=== PATIENT | female | born 1940 | race Caucasian/White ===

== ENCOUNTER → 2020-03-11 11:16 | Outpatient (CLI) | payer MEDICARE, BC, SELFPAY ==
--- NOTE | 2020-03-11 | DI.MG.S_ITS ---
BILATERAL DIGITAL DIAGNOSTIC MAMMOGRAM 3D/2D: 03/11/2020 CLINICAL: Right axillary tail mass. Comparison is made to exams dated: 12/28/2016 mammogram, 12/12/2014 mammogram, and 05/06/2012 mammogram - [facility]. The tissue of both breasts is heterogeneously dense. This may lower the sensitivity of mammography. There is an oval lymph node or nodes with a circumscribed margin in the right axilla seen on the axillary view only. This correlates as palpated. No other significant masses, calcifications, or other findings are seen in either breast. Diffuse scattered punctate calcifications bilaterally appear unchanged. IMPRESSION: INCOMPLETE: NEEDS ADDITIONAL IMAGING EVALUATION Enlarged lymph node or nodes in the right axilla are indeterminate. A targeted ultrasound is recommended and will immediately follow. This exam was interpreted at Station ID: [id number]. NOTE: For mammograms, a report in lay terms will be sent to the patient. Approximately 15% of breast malignancies will not be visualized mammographically. In the management of a palpable breast mass, a negative mammogram must not discourage biopsy of a clinically suspicious lesion. Electronically Signed By: Willis Rangel M.D. slc/:03/11/2020 13:02:30 ACR BI-RADS Category 0: Incomplete [id number]
--- NOTE | 2020-03-11 | DI.US.S_ITS ---
ULTRASOUND OF RIGHT BREAST AND AXILLA: 03/11/2020 CLINICAL: Palpable right breast lump. Comparison is made to exams dated: 03/11/2020 mammogram - [facility], 12/28/2016 mammogram, 12/12/2014 mammogram, and 05/06/2012 mammogram - [facility]. Color flow and real-time ultrasound of the right breast axilla were performed. Obrien scale images of the real-time examination were reviewed. There is a 4 cm x 2.2 cm x 6.3 cm oval enlarged lymph node with a circumscribed margin in the right axillary tail. This oval enlarged lymph node is hypoechoic and hyperechoic. This correlates as palpated. This node appears bilobed. Color flow imaging demonstrates that there is vascularity present. There also is a 1.2 cm x 0.8 cm x 1.8 cm enlarged lymph node in the right axillary tail. This enlarged lymph node is hypoechoic and hyperechoic. Color flow imaging demonstrates that there is vascularity present. A few additional similar appearing enlarged lymph nodes in the right axillary. IMPRESSION: SUSPICIOUS OF MALIGNANCY Palpable abnormality corresponds to a 6.3 cm enlarged lymph node in the right axilla and is at a high suspicion for malignancy. Several additional adjacent enlarged nodes. Ultrasound guided biopsy is recommended. Exam findings and recommendation were discussed with the patient in person by Dr. Arango. This exam was interpreted at Station ID: [id number]. Electronically Signed By: Willis Rangel M.D. slc/:03/11/2020 13:43:43 letter sent: Biopsy Required Ultrasound BI-RADS: 4c High suspicion of malignancy
== END ==
PROVIDERS: PCP Nurse Practitioner; Referring Provider Nurse Practitioner; Visit Provider Nurse Practitioner
DX: R92.8 Other abnormal and inconclusive findings on diagnostic imaging of breast (principal); N63.31 Unspecified lump in axillary tail of the right breast; R59.0 Localized enlarged lymph nodes
CPT/HCPCS: 76642; 77066; G0279

== ENCOUNTER → 2020-03-26 08:45 | Outpatient (CLI) | payer MEDICARE, OTHER, SELFPAY ==
--- NOTE | 2020-03-26 | PATH_ITS ---
[facility] Accession Number: [id number] . 01 Material submitted: . PART A: lymph node - RIGHT AXILLARY LYMPH NODE (FORMALIN) PART B: lymph node - RIGHT AXILLARY LYMPH NODE (NON-BACTERIOSTATIC SALINE) . 01 Clinical history: . BREAST AXILLARY MASS . 01 Diagnosis: A. 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 See comment. . B. 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 V 04/01/2020 1636 Local . 01 Comment: Both biopsies show what appears to be lymph node partially replaced by solid nests of a poorly differentiated carcinoma with moderately abundant eosinophilic cytoplasm, severely pleomorphic/atypical nuclei, and multiple mitotic figures. A panel of immunostains is obtained to determine the primary site, on block A, with controls stained appropriately. The tumor shows the following results: . Cytokeratin 7: Uniformly positive. Cytokeratin 20: Negative. GATA3: Uniformly positive. GCDFP15: Negative. Mammaglobin: Negative. TTF1: Negative. P40: Focally positive. . These results, in conjunction with the morphologic and clinical features, support origin from a breast primary given expression of the principal software architect factor GATA3. Confirmation of a breast primary is lacking; however, given that GATA3 can be identified in other primaries (particularly a urothelial tract carcinoma) and also given the negative breast/adnexal markers GCDFP15 and mammaglobin. Otherwise, there is no evidence for a metastatic adenocarcinoma from lung (negative TTF1) and there is no evidence for a squamous cell carcinoma (given low level expression only seen with p40). . The results of these findings are verbally provided by Dr. Pagan to medical sociologist Lizeth on 04/01/2020 at 11:[address] Winston at 12:25 p.m. . Predictive marker immunohistochemical studies are performed on block A1 with the invasive carcinoma showing the following results: . Estrogen receptor (SP1): Negative (0%). Progesterone receptor (1E2): Negative (0%). Her2 (4B5): Positive for overexpression (3+, approximately 20% of cells). . Internal controls for ER and MO are not present; false negative results cannot be excluded. Cold ischemic time is not provided. The scoring criteria for breast biomarkers by immunohistochemistry is based on the ASCO/CAP guidelines (Chika AC et al, J Clin Oncol: 2017May 28;36(20):0457-0348 and Matt ME et al, Arch Pathol Lab Med: 2009;134(6):907-22). Deparaffinized sections of formalin fixed tissue (along with appropriate positive controls) are incubated with the above antibody(s). Using the automated [place] stainer, tissue is incubated with the designated antibody which is then localized by a non-biotin, dual polymer detection system. The external controls are reviewed for appropriate reactivity and found to be adequate. Results on the target cell population are indicated above. These tests have not been validated on decalcified tissue. This test was developed and its performance characteristics determined by [employer] It has not been cleared or approved by the U.S. Food and Drug Administration. The FDA has determined that such clearance or approval is not necessary. This test is used for clinical purposes. It should not be regarded as investigational or for research. . 01 Electronically signed: . Krista Pagan MD, Pathologist NPI- [id number] . 01 Gross description: . Part A: RIGHT AXILLARY LYMPH NODE (FORMALIN): Received in formalin is 1 fragment(s) of ojeda, soft tissue measuring 1.3 x 0.1 x 0.1 cm submitted entirely in 1 cassette(s) Part B: RIGHT AXILLARY LYMPH NODE (NON-BACTERIOSTATIC SALINE): Received in formalin is 1 fragment(s) of ojeda, soft tissue measuring 1.5 x 0.1 x 0.1 cm submitted entirely in 1 cassette(s) /QB 03/27/2020 0537 Local . 01 Pathologist provided ICD-10: C77.9 . 01 CPT . 373294, 387717, 856101, 043928, 286682, [id number], [id number] Performed at: [address] [facility] [address], [place], [place] [id number] MD Harjinder Yadav MD Phone: [phone]
--- NOTE | 2020-03-26 | DI.US.S_ITS ---
PROCEDURE: US BIOPSY LYMPH NODE INDICATIONS: RIGHT AXILLARY LYMPH NODE TECHNIQUE: The indications, alternatives, benefits, risks, and complications of the procedure were explained to the patient. Written informed consent was obtained and placed in the chart. Real-time sonography was utilized to choose the site for percutaneous lymph node sampling. The skin was prepped and draped in the usual sterile fashion. 1% lidocaine was infiltrated down to the site of interest. A coaxial needle was then advanced into the site of interest under direct sonographic visualization. A biopsy apparatus was then utilized, and core biopsies were obtained. The needle was then withdrawn; a bandage was applied to the biopsy site. COMPARISON: None. FINDINGS: Biopsy site(s): Right axilla Needle: finalsite biopsy needle set. Number of passes: 6 Medications: 1% lidocaine for local anaesthesia. Complications: None. IMPRESSION: Successful ultrasound-guided right axillary lymph node biopsy, with pathology results pending. No immediate complications. Dictated by: Peri Howe MD, PhD on 03/26/2020 at 14:37 Approved by: Peri Howe MD, PhD on 03/26/2020 at 14:38
== END ==
PROVIDERS: PCP Nurse Practitioner; Referring Provider Nurse Practitioner; Visit Provider Nurse Practitioner
DX: C77.3 Secondary and unspecified malignant neoplasm of axilla and upper limb lymph nodes (principal); C80.1 Malignant (primary) neoplasm, unspecified
CPT/HCPCS: 38505; 76942

== ENCOUNTER → 2022-08-04 15:42 | Outpatient (CLI) | payer MEDICARE, SELFPAY ==
--- NOTE | 2022-08-04 15:43 | DI.MRI.S_ITS ---
PROCEDURE: MR LUMBAR SPINE WO CON INDICATIONS: LUMBAR RADICULOPATHY TECHNIQUE: Noncontrast sagittal T1 spin echo and T2 fast echo, sagittal STIR, and T2 fast spin echo through the lumbar spine. In cases with scoliosis, additional coronal T2 fast spin echo may be performed. COMPARISON: [facility] Outside Film, CR, XR LUMBAR SPINE WITH OBLIQUES, 12/02/2019, 14:29. FINDINGS: Image quality: Excellent. Alignment and Curvature: There is moderate dextroconvex curvature of the lumbar spine centered at the L3 vertebral body level. 5 mm grade 1 anterolisthesis of L4 on L5. 2 mm grade 1 retrolisthesis of L2 on L3. 2 mm grade 1 anterolisthesis of L1 on L2. Bone Marrow: Marrow is of normal overall signal. No acute vertebral body compression fractures. Chronic superior endplate depression is seen at the L4 level without associated osseous edema. Spinal Cord: Conus medullaris terminates at the L1 level. Visualized cord demonstrates normal signal and size. Paraspinous Soft Tissues: No paravertebral masses. There is grade 3-4 fatty infiltration of the paraspinous musculature. T12-L1: Mild bilateral facet hypertrophy. No significant spinal canal stenosis or neural foraminal narrowing. L1-L2: There is grade 1 retrolisthesis of L1 on L2 as well as left lateral listhesis of L1 on L2. Disc desiccation and severe disc space narrowing. Posterior disc-osteophyte complex is eccentric towards the left. Moderate left and mild right facet hypertrophy. Findings result in mild narrowing of the spinal canal with effacement of the left lateral recess and severe left neural foraminal narrowing and moderate to severe right neural foraminal narrowing. L2-L3: Grade 1 retrolisthesis of L2 on L3 as well as mild left lateral listhesis of L2 on L3. Severe disc desiccation and loss of disc space height. Posterior disc-osteophyte complex. Moderate bilateral facet hypertrophy with buckling of the ligamentum flavum. Findings result in mild narrowing of the spinal canal, crowding of the bilateral lateral recesses, and severe left and moderate right neural foraminal narrowing. L3-L4: Disc desiccation and loss of disc space height. Mild right lateral listhesis of L3 on L4. Posterior disc-osteophyte complex. Moderate to severe bilateral facet hypertrophy and buckling of the ligamentum flavum. Findings result in moderate to severe spinal canal narrowing, effacement of the bilateral lateral recesses, and severe left and moderate right neural foraminal narrowing. L4-L5: Grade 1 anterolisthesis of L4 on L5 and mild right lateral listhesis of L4 on L5. Disc space narrowing and loss of disc space height with uncovering the disc space and posterior disc bulging. Severe bilateral facet hypertrophy and buckling of the ligamentum flavum. Findings result in severe narrowing of the central spinal canal, effacement of the bilateral lateral recesses, and moderate bilateral neural foraminal narrowing. L5-S1: Disc desiccation and severe loss of disc space height. Central disc extrusion measures approximately 10 x 4 x 9 mm. Moderate right and mild left facet hypertrophy. Findings result in mild narrowing of the spinal canal as well as mild left and moderate to severe right neural foraminal narrowing. IMPRESSION: 1. 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 2. Severe spinal canal narrowing at the L4-5 level and moderate to severe spinal canal narrowing at the L3-4 level. 3. High-grade neural foraminal narrowing is seen unilaterally or bilaterally at every lumbar spine level except T12-L1. Dictated by: Emeka Zuniga M.D. on 08/04/2022 at 19:43 Approved by: Emeka Zuniga M.D. on 08/04/2022 at 20:00
== END ==
PROVIDERS: PCP Nurse Practitioner; Referring Provider Physical Medicine & Rehabilitation; Visit Provider Physical Medicine & Rehabilitation
DX: M47.26 Other spondylosis with radiculopathy, lumbar region (principal)
CPT/HCPCS: 72148